=== PATIENT | female | born 1960 | race Hispanic/Latino ===

== ENCOUNTER 2018-03-07 07:15 | Day surgery (SDC) | payer BC ==
[2018-03-07] VITALS (8 sets, daily range): BP systolic 114–149; BP diastolic 57–72
[2018-03-07 08:56] LABS: BASOPHILS % (AUTO) 0.9 % (0.0-5.0); EOSINOPHILS % (AUTO) 1.6 % (0.0-8.0); HEMATOCRIT 39.5 % (36-48); LYMPHOCYTES % (AUTO) 54.7 % (21.0-51.0); MEAN CORPUSCULAR HEMOGLOBIN 31.3 pg (27.0-33.0); MEAN CORPUSCULAR HGB CONC 34.2 g/dL (32.0-36.0); MEAN CORPUSCULAR VOLUME 91.5 fL (79-99); MONOCYTES % (AUTO) 5.6 % (3.0-13.0); NEUTROPHILS % (AUTO) 37.2 % (40.0-77.0); NUCLEATED RED BLOOD CELLS 0.1 % (0.0-0.19); PLATELET COUNT (AUTO) 233 K/uL (130-400); RED BLOOD CELL COUNT(AUTO) 4.32 MIL/uL (4.00-5.50); RED CELL DISTRIBUTION WIDTH 13.4 % (11.0-15.5); WHITE BLOOD COUNT (AUTO) 5.2 K/uL (4.8-10.8)
[2018-03-07 09:03] LABS: CREATININE 0.7 mg/dL (0.5-1.5); INR 0.97 (0.85-1.15); PARTIAL THROMBOPLASTIN TIME 28.6 SEC (26.3-35.5); POTASSIUM 4.2 mmol/L (3.5-5.1); PROTHROMBIN TIME 10.2 SEC (9.6-11.6)
[2018-03-07 09:07] LABS: ALBUMIN 4.2 g/dL (3.5-5.0); TOTAL PROTEIN, SERUM 7.7 g/dL (6.0-8.3)
[2018-03-07] MEDS ORDERED: SODIUM CHLORIDE 0.9% 1000ML 1,000 ML IV ONE (09:27)
--- NOTE | 2018-03-07 10:08 | NUR ---
PROCEDURE PT TAKEN TO RADIOLOGY VIA STRETCHER. WITH PT.
--- NOTE | 2018-03-07 11:15 | NUR ---
U/S GD LIVER BX RANDOM SITE PROCEDURE PERFORMED BY DR Em KHAN. PUNCTURE SITE RLQ AND PATIENT TOLERATED PROCEDURE WELL. SPECIMEN X 3 COLLECTED AND SENT TO LAB. END OF PROCEDURE AT 1055. FLOSEAL INJECTED TO BIOPSY SITE. BIOPSY NEEDLE REMOVED AND DRESSING APPLIED. NO BLEEDING NOTED. REPORT GIVEN TO Yohana BLOOM RN AND PATIENT TRANSPORTED TO DAY PATIENT VIA STETCHER AT 1120. AAO X3 WITH C/O SORENESS TO RT SHOULDER..
--- NOTE | 2018-03-07 11:20 | NUR ---
SITE CHECK SITE CHECK TO RIGHT LOWER QUADRANT. SOFT TO TOUCH. DRY AND INTACT
--- NOTE | 2018-03-07 11:35 | NUR ---
SITE CHECK SITE CHECK TO RIGHT LOWER QUADRANT. SOFT TO TOUCH. DRY AND INTACT
--- NOTE | 2018-03-07 11:50 | NUR ---
SITE CHECK SITE CHECK TO RIGHT LOWER QUADRANT. SOFT TO TOUCH. DRY AND INTACT
--- NOTE | 2018-03-07 12:05 | NUR ---
SITE CHECK SITE CHECK TO RIGHT LOWER QUADRANT. SOFT TO TOUCH. DRY AND INTACT
--- NOTE | 2018-03-07 12:20 | NUR ---
SITE CHECK SITE CHECK TO RIGHT LOWER QUADRANT. SOFT TO TOUCH. DRY AND INTACT
--- NOTE | 2018-03-07 12:50 | NUR ---
SITE CHECK SITE CHECK TO RIGHT LOWER QUADRANT. SOFT TO TOUCH. DRY AND INTACT
--- NOTE | 2018-03-07 13:16 | NUR ---
SITE CHECK SITE CHECK TO RIGHT LOWER QUADRANT. SOFT TO TOUCH. DRY AND INTACT
--- NOTE | 2018-03-07 13:23 | NUR ---
AMBULATION PT AMBULATED WITHOUT DIFFICULTY.
--- NOTE | 2018-03-07 13:46 | NUR ---
SITE CHECK SITE CHECK TO RIGHT LOWER QUADRANT. SOFT TO TOUCH. DRY AND INTACT
--- NOTE | 2018-03-07 14:00 | NUR ---
DISCHARGE ORAL AND WRITTEN DISCHARGE INSTRUCTIONS GIVEN TO PT AND PTS . NO QUESTIONS AT THIS TIME.
== END 2018-03-07 14:10 | disposition home or self-care (01) ==
LOC: RAH 07:15 → DAH 07:15 → EDSTATUS 08:00 → RAH 14:10
PROVIDERS: ATTEND Internal Medicine
DX: K75.81 Nonalcoholic steatohepatitis (NASH) (principal); E78.5 Hyperlipidemia, unspecified; I10 Essential (primary) hypertension; J45.909 Unspecified asthma, uncomplicated; Z90.710 Acquired absence of both cervix and uterus; Z98.890 Other specified postprocedural states; Z79.01 Long term (current) use of anticoagulants; Z79.899 Other long term (current) drug therapy; Z68.30 Body mass index [BMI] 30.0-30.9, adult
CPT/HCPCS: 36415; 47000; 76942; 80053; 82948 ×2; 85025; 85610; 85730; 88307; A4215; C2615; J7030